=== PATIENT | female | born 1945 | race Caucasian/White ===

== ENCOUNTER 2019-04-03 08:21 | Observation (INO) ==
[2019-04-03 10:21] LABS: Basophils # 0.1 10*3/uL (0.0-0.2); Basophils % 1.1 % (0.0-0.8); Eosinophils % 0.9 % (0.00-10.9); Hematocrit 32.1 VOL% (35.7-47.0); Hemoglobin 9.9 GM/DL (12.0-16.0); Immature Granulocytes % 2.4 %; Immature Granulocytes Absolute 0.11 #; Lymphocytes # 1.2 10*3/uL (1.4-4.0); Lymphocytes % 27.3 % (21.3-54.2); Mean Corpuscular HGB Conc 30.8 GM/DL (32-36); Mean Corpuscular Volume 100.6 FL (87-102); Monocytes % 18.4 % (1.7-12.7); Neutrophils % 49.9 % (38.7-73.9); Red Blood Count 3.19 MC/CUMM (3.8-5.5); White Blood Count 4.5 T/CUMM (4-12)
[2019-04-03 10:24] LABS: PT Patient Result 10.6 SECS; Partial Thromboplastin Time 27.9 SECS (0-40)
[2019-04-03 10:25] LABS: Platelet Count 89 T/CUMM (130-400)
[2019-04-03 10:32] LABS: Alanine Aminotransferase < 9 U/L (13-56); Albumin 2.6 G/DL (3.4-5.0); Alkaline Phosphatase 79 U/L (45-117); Aspartate Amino Transferase 15 U/L (0-37); Blood Urea Nitrogen 11 MG/DL (7-18); Calcium 8.7 MG/DL (8.5-10.1); Glucose 118 MG/DL (74-106); Osmolality,Calculated 280.3 MOS/KG (273-304); Total Protein 5.3 G/DL (6.4-8.3)
[2019-04-03 10:46] LABS: Lymphocytes 40 % (20-55); Segmented Neutrophils 51 % (50-85); Total Cells Counted 100
[2019-04-03 10:47] LABS: Anisocytosis 1+; Hypochromasia Slight; Microcytosis 1+
[2019-04-03 10:48] LABS: Atypical Lymphocytes Few; Elliptocytes 1+
[2019-04-03 10:49] LABS: Acanthocytes Few; Platelet Estimate Decreased; Poikilocytosis 1+
[2019-04-03] MEDS ORDERED: ONDANSETRON 4 MG/2 ML VIAL ONE (13:30)
[2019-04-03] MEDS ORDERED: HYDROmorphone 2 MG/1 ML VIAL ONE (13:31)
[2019-04-03 13:48] LABS: Apearance,Urine CLEAR (Clear); Bilirubin,Urine Negative (Negative); Blood, Urine Negative (Negative); Glucose,Urine (UA) Negative (Negative); Ketones,Urine Negative (Negative); Mucus,Urine Occasional /LPF (Occasional); Nitrite,Urine Negative (Negative); Protein,Urine Negative; RBC,Urine 1 /HPF (0-4); Squamous Epithelial Cell,Urine Occasional /HPF (0-10); Urine Color Yellow (Yellow); Urine Specific Gravity 1.006 (1.001-1.035); Urine Urobilinogen < 2.0 EU/DL (0.2-1.0); WBC,Urine 2 /HPF (0-6)
[2019-04-03] MEDS ORDERED: ACETAMINOPHEN 325 MG TABLET PO PRN (14:18)
[2019-04-03] MEDS ORDERED: DOCUSATE SODIUM 100 MG CAPSULE PO PRN (14:18)
[2019-04-03] MEDS ORDERED: BISACODYL 5 MG TABLET PO PRN (14:18)
[2019-04-03] MEDS ORDERED: PROMETHAZINE 25 MG TABLET PO PRN (14:23)
[2019-04-03] MEDS ORDERED: NITROGLYCERIN SL 0.4 MG TABLET SL PRN (14:23)
[2019-04-03] MEDS ORDERED: LIDOCAINE/PRILOCAINE CREAM 5 GM TUBE TOP PRN (14:23)
[2019-04-03] MEDS ORDERED: ALBUTEROL 2.5 MG/3 ML NEB RESP TX PRN (14:23)
[2019-04-03] MEDS ORDERED: ACETAMINOPHEN PO PRN (14:23)
[2019-04-03] MEDS ORDERED: fentaNYL 50 MCG/HR PATCH TRANSDERM SCH (14:30)
[2019-04-03] MEDS ORDERED: POTASSIUM CHLORIDE 20 MEQ TABLET PO ONE (14:32)
[2019-04-03] MEDS ORDERED: HYDROmorphone 2 MG/1 ML VIAL IV PRN (14:33)
[2019-04-03] MEDS ORDERED: ONDANSETRON 4 MG/2 ML VIAL IV STA (14:47)
[2019-04-03] MEDS ORDERED: HYDROmorphone 2 MG/1 ML VIAL IV STA (14:47)
[2019-04-03] MEDS ORDERED: MAGNESIUM SULF RIDER 2 GM in PREMIX 1 EACH IV ONE (15:43)
[2019-04-03] MEDS: FERROUS SULFATE 325 MG TABLET PO SCH ×2 (16:29→20:56)
[2019-04-03] MEDS: ALBUTEROL/IPRATROPIUM 3 ML NEB RESP TX SCH (19:00)
[2019-04-03] MEDS: ZONISAMIDE 100 MG CAPSULE PO SCH (20:57)
[2019-04-03] MEDS: BUDESONIDE/FORMOTEROL 160-4.5 INHALER 6 GM INH SCH (20:58)
[2019-04-03] MEDS ORDERED: POTASSIUM CHLORIDE 20 MEQ TABLET PO SCH (21:00)
[2019-04-03] MEDS ORDERED: AMITRIPTYLINE 25 MG TABLET PO SCH (21:00)
[2019-04-03] MEDS ORDERED: MODAFINIL 200 MG PO SCH (21:00)
[2019-04-03] MEDS ORDERED: CARBIDOPA/LEVODOPA 25-250 MG TABLET PO SCH (21:00)
[2019-04-03] MEDS: ONDANSETRON 4 MG/2 ML VIAL IV PRN (23:01)
[2019-04-04] MEDS: ALBUTEROL/IPRATROPIUM 3 ML NEB RESP TX SCH ×3 (01:15→15:37)
[2019-04-04 06:02] LABS: Basophils % 0.7 % (0.0-0.8); Eosinophils % 0.7 % (0.00-10.9); Hematocrit 30.7 VOL% (35.7-47.0); Hemoglobin 9.4 GM/DL (12.0-16.0); Immature Granulocytes % 4.9 %; Lymphocytes # 1.1 10*3/uL (1.4-4.0); Lymphocytes % 26.7 % (21.3-54.2); Mean Corpuscular HGB Conc 30.6 GM/DL (32-36); Monocytes % 24.7 % (1.7-12.7); Neutrophils % 42.3 % (38.7-73.9); Red Blood Count 3.04 MC/CUMM (3.8-5.5); Red Cell Distribution Width 19.2 % (9.3-17.3); White Blood Count 4.1 T/CUMM (4-12)
[2019-04-04 06:06] LABS: Platelet Count 87 T/CUMM (130-400)
[2019-04-04 06:28] LABS: Band Neutrophils 4 % (0-10); Lymphocytes 32 % (20-55); Myelocytes 1 %; Segmented Neutrophils 44 % (50-85); Total Cells Counted 100
[2019-04-04 06:29] LABS: Acanthocytes Few; Anisocytosis 1+; Ovalocytes 2+; Platelet Estimate Decreased
[2019-04-04 06:38] LABS: Calcium 8.5 MG/DL (8.5-10.1); Osmolality,Calculated 279.1 MOS/KG (273-304)
[2019-04-04] MEDS: ZONISAMIDE 100 MG CAPSULE PO SCH (08:45)
[2019-04-04] MEDS: FERROUS SULFATE 325 MG TABLET PO SCH ×2 (08:47→16:18)
[2019-04-04] MEDS: BUDESONIDE/FORMOTEROL 160-4.5 INHALER 6 GM INH SCH (08:50)
[2019-04-04] MEDS ORDERED: COENZYME Q10 100 MG CAPSULE PO SCH (09:00)
[2019-04-04] MEDS ORDERED: FUROSEMIDE 20 MG TABLET PO SCH (09:00)
[2019-04-04] MEDS ORDERED: CHOLECALCIFEROL 1,000 UNIT TABLET PO SCH (09:00)
[2019-04-04] MEDS ORDERED: ASCORBIC ACID 500 MG TABLET PO SCH (09:00)
[2019-04-04] MEDS ORDERED: MULTIVITAMIN (CENTRUM) TABLET PO SCH (09:00)
[2019-04-04] MEDS ORDERED: METOPROLOL SUCCINATE XL 25 MG TABLET PO SCH (09:00)
[2019-04-04] MEDS ORDERED: CALCIUM (CITRATE)/VITAMIN D 200 MG-125 UNIT TABLET PO SCH (09:00)
[2019-04-04] MEDS ORDERED: LIDOCAINE 5% PATCH TRANSDERM SCH (09:00)
[2019-04-04] MEDS ORDERED: ASPIRIN EC 81 MG TABLET PO SCH (09:00)
[2019-04-04] MEDS ORDERED: PANTOPRAZOLE 40 MG TABLET PO SCH (09:00)
[2019-04-04] MEDS: ONDANSETRON 4 MG/2 ML VIAL IV PRN (11:54)
[2019-04-04] MEDS ORDERED: CALCIUM CARBONATE CHEW 500 MG TABLET PO PRN (13:32)
[2019-04-04 16:03] VITALS: BP 94/62
== END 2019-04-04 17:05 | disposition home or self-care (01) ==
LOC: N.ED 08:21 → N.EDINP 08:21 → SUATTDRO 14:18 → N.2E 15:47 → UNDODISOB 04-04 16:47
PROVIDERS: ADMIT Internal Medicine; ATTEND Internal Medicine Cardiovascular Disease